=== PATIENT | male | born 1970 | race African-American/Black ===

== ENCOUNTER 2023-08-08 13:14 | Emergency (ER) | payer OTHER ==
[~2023-08-08] VITALS: Ht 188 cm; Wt 149.7 kg
[2023-08-08] MEDS ORDERED: ZESTRIL20 MG PO (13:24)
== END 2023-08-08 14:06 | disposition home or self-care (01) ==
LOC: ER 13:15
DX: T50.905A Adverse effect of unspecified drugs, medicaments and biological substances, initial encounter (principal); Y92.832 Beach as the place of occurrence of the external cause; J10.1 Influenza due to other identified influenza virus with other respiratory manifestations